=== PATIENT | female | born 1965 | race Caucasian/White ===

== ENCOUNTER 2017-02-09 18:06 | Emergency (ER) | payer OTHER ==
[~2017-02-09] VITALS: Ht 167.6 cm; Wt 136.1 kg
--- NOTE | ~2017-02-09 | EKG ---
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
[~2017-02-09 18:06] MED LIST: ACCOLATE10 MG; ALAVERT10 MG; FISH OIL 1,0001 EAC8; IBUPROFEN 600600 M1 PO; NEXIUM 40 MG CA40 M1; NORCO 5-325 TA1 EACH PO; OCELLA 3 MG-0.1 EACH PO; PROZAC 20 MG20 M1 PO; SERAVENT; [UNRECOGNIZED DRUG - OTHER]
[2017-02-09 19:43] LABS: ABSOLUTE NEUTROPHILS 12.1 thou/uL (1.4-8.2); BASOPHILS 0.5 % (0.0-2.0); EOSINOPHILS 0.5 % (0.0-3.0); HEMATOCRIT 38.3 % (37.0-47.0); HEMOGLOBIN 12.5 gm/dL (12.0-15.0); LYMPHOCYTES 11.8 % (24.0-44.0); MCH 25.6 pg (26.0-34.0); MCHC 32.7 g/dL (28.0-37.0); MCV 78.4 fL (80.0-100.0); MONOCYTES 4.9 % (1.0-8.0); PLATELET COUNT 224 thou/uL (150-400); POLYS 82.3 % (36.0-66.0); RBC 4.89 mil/uL (4.20-5.00); RDW 16.8 % (10.5-14.5); WBC 14.6 thou/uL (4.0-11.0)
[2017-02-09 19:48] LABS: MANUAL DIFF NO
[2017-02-09 19:54] LABS: CALCIUM 8.8 mg/dL (8.5-10.1); POTASSIUM 4.2 mmol/L (3.5-5.1)
[2017-02-09 19:59] LABS: ALBUMIN 2.9 g/dL (3.4-5.0); TOTAL BILIRUBIN 0.3 mg/dL (<0.1-1.0); TOTAL PROTEIN 7.1 g/dL (6.4-8.2)
[2017-02-09 21:00] VITALS: BP 121/76
== END 2017-02-09 21:00 | disposition home or self-care (01) ==
LOC: ER 18:06
PROVIDERS: Emergency Medicine
DX: R42 Dizziness and giddiness (principal); R55 Syncope and collapse; J45.909 Unspecified asthma, uncomplicated; F90.9 Attention-deficit hyperactivity disorder, unspecified type; K21.9 Gastro-esophageal reflux disease without esophagitis; Z88.1 Allergy status to other antibiotic agents; Z88.8 Allergy status to other drugs, medicaments and biological substances

== ENCOUNTER 2018-07-24 16:35 | Emergency (ER) | payer OTHER ==
[~2018-07-24] VITALS: Ht 167.6 cm; Wt 132.9 kg
--- NOTE | ~2018-07-24 | EKG ---
[address] [address] ELECTROCARDIOGRAM REPORT Name: EDITH ULLOA Room #: DEP [facility]#: [id number] Admission: 07/24/18 Attend Phys: Discharge: 07/24/18 Date of : 69 Report #: [id number] THIS REPORT FOR: //name// [facility] ED Test Date: 2018-07-24 Test Time: 17:08:08 Pat Name: EDITH ULLOA Department: Room: Gender: F Dispatcher Radio: MANGO : 1965 Requested By: Urmila Pool Order Number: [id number] MD: Rajesh Cowan Measurements Intervals [place] Rate: 58 P: 51 [place]: 148 QRS: 24 QRSD: 128 T: 35 QT: 428 QTc: 421 Interpretive Statements Sinus rhythm Nonspecific intraventricular conduction delay Compared to ECG 02/09/2017 18:55:27 Intraventricular conduction delay now present Electronically Signed On 07-26-2018 17:30:13 CDT by Rajesh Cowan [email or web address] <ELECTRONICALLY SIGNED> By: Rajesh Cowan MD 07/26/18 1730 07 07 Rajesh Cowan MD /INDRA
[2018-07-24] MEDS ORDERED: SINGULAIR 10 MG10 M1 PO (17:17)
[2018-07-24] MEDS ORDERED: VENTOLIN HFA 1818 GM INH (17:18)
[2018-07-24] MEDS ORDERED: BENTYL 20 MG TA20 M1 PO (17:19)
[2018-07-24] MEDS ORDERED: FOLBIC RF TABL1 EACH PO (17:19)
[2018-07-24] MEDS ORDERED: RISPERIDONE 00.25 M1 PO (17:21)
[2018-07-24] MEDS ORDERED: ZYRTEC 10 MG TA10 MG PO (17:22)
[2018-07-24 17:35] LABS: ABSOLUTE NEUTROPHILS 8.9 thou/uL (1.4-8.2); BASOPHILS 0.8 % (0.0-2.0); EOSINOPHILS 0.9 % (0.0-3.0); HEMOGLOBIN 11.8 gm/dL (12.0-15.0); LYMPHOCYTES 14.7 % (24.0-44.0); MCH 25.3 pg (26.0-34.0); MCHC 32.7 g/dL (28.0-37.0); MCV 77.3 fL (80.0-100.0); MONOCYTES 5.5 % (1.0-8.0); PLATELET COUNT 215 thou/uL (150-400); POLYS 78.1 % (36.0-66.0); RBC 4.66 mil/uL (4.20-5.00); RDW 17.2 % (10.5-14.5); WBC 11.4 thou/uL (4.0-11.0)
[2018-07-24 17:50] LABS: ANION GAP 10 mmol/L (7-16); BUN 17 mg/dL (7-18); CALCIUM 8.8 mg/dL (8.5-10.1); CHLORIDE 103 mmol/L (98-107); CO2 24 mmol/L (21-32); CREATININE 1.1 mg/dL (0.6-1.0); GLUCOSE 122 mg/dL (74-106); POTASSIUM 4.4 mmol/L (3.5-5.1); SODIUM 137 mmol/L (136-145)
[2018-07-24 17:55] LABS: ALBUMIN 2.9 g/dL (3.4-5.0); SGOT 15 U/L (15-37); SGPT 17 U/L (30-65); TOTAL BILIRUBIN 0.3 mg/dL (<0.1-1.0); TOTAL PROTEIN 7.4 g/dL (6.4-8.2); TROPONIN-I <0.06 ng/mL (<0.06)
[2018-07-24 18:35] VITALS: BP 133/55
== END 2018-07-24 18:40 | disposition home or self-care (01) ==
LOC: ER 16:35
PROVIDERS: Student in an Organized Health Care Education/Training Program
DX: R55 Syncope and collapse (principal); J45.909 Unspecified asthma, uncomplicated; K21.9 Gastro-esophageal reflux disease without esophagitis; Z79.899 Other long term (current) drug therapy; Z88.1 Allergy status to other antibiotic agents; Z88.8 Allergy status to other drugs, medicaments and biological substances